=== PATIENT | female | born 1995 | race African-American/Black ===

== ENCOUNTER 2019-07-17 19:40 | Inpatient (IN) ==
[2019-07-17 23:00] LABS: Apearance,Urine CLEAR (Clear); Bilirubin,Urine Negative (Negative); Blood, Urine Large mg/dL (Negative); Glucose,Urine (UA) Negative (Negative); Ketones,Urine 80 mg/dL (Negative); Mucus,Urine Moderate /LPF (Occasional); Nitrite,Urine Negative (Negative); Protein,Urine Negative; RBC,Urine 20 /HPF (0-4); Squamous Epithelial Cell,Urine Occasional /HPF (0-10); Urine Color Yellow (Yellow); Urine Specific Gravity 1.023 (1.001-1.035); WBC,Urine 3 /HPF (0-6)
[2019-07-17] MEDS ORDERED: SODIUM CHLORIDE 0.9% 1,000 ML IV STA (23:00)
[2019-07-17] MEDS ORDERED: METOCLOPRAMIDE 10 MG/2 ML VIAL IV STA (23:01)
[2019-07-18 00:37] LABS: Calcium 8.6 MG/DL (8.5-10.1); Osmolality,Calculated 270.7 MOS/KG (273-304)
[2019-07-18 00:46] LABS: Basophils % 0.3 % (0.0-0.8); Eosinophils # 0.1 10*3/uL (0.0-0.87); Eosinophils % 0.6 % (0.00-10.9); Hematocrit 34.6 VOL% (35.7-47.0); Hemoglobin 10.8 GM/DL (12.0-16.0); Immature Granulocytes % 0.6 %; Immature Granulocytes Absolute 0.06 #; Lymphocytes # 1.9 10*3/uL (1.4-4.0); Lymphocytes % 18.9 % (21.3-54.2); Mean Corpuscular HGB Conc 31.2 GM/DL (32-36); Mean Corpuscular Volume 86.7 FL (87-102); Mean Platelet Volume 9.6 FL (9.6-12.0); Monocytes % 8.2 % (1.7-12.7); Neutrophils % 71.4 % (38.7-73.9); Platelet Count 305 T/CUMM (130-400); Red Blood Count 3.99 MC/CUMM (3.8-5.5); White Blood Count 9.8 T/CUMM (4-12)
[2019-07-18] MEDS ORDERED: DEXTROSE 5% NACL 0.45% 1,000 ML IV SCH ×2 (01:00→02:30)
[2019-07-18] MEDS ORDERED: METOCLOPRAMIDE 10 MG/2 ML VIAL IV STA (01:59)
[2019-07-18] MEDS ORDERED: SCOPOLAMINE 1.5 MG PATCH TRANSDERM ONE ×2 (02:05→02:10)
[2019-07-18] MEDS ORDERED: DEXTROSE 10% 250 ML BAG IV PRN (02:12)
[2019-07-18] MEDS: DEXTROSE 5% NACL 0.45% 1,000 ML IV SCH ×3 (02:21→17:34)
[2019-07-18] MEDS: ONDANSETRON 4 MG/2 ML VIAL IV SCH ×6 (03:45→23:05)
[2019-07-19] MEDS: DEXTROSE 5% NACL 0.45% 1,000 ML IV SCH ×2 (00:03→05:15)
[2019-07-19] MEDS: ONDANSETRON 4 MG/2 ML VIAL IV SCH (02:44)
[2019-07-19 07:20] VITALS: BP 87/50
[2019-07-19] MEDS ORDERED: ONDANSETRON 4 MG/2 ML VIAL IV PRN (07:49)
== END 2019-07-19 13:30 | disposition home or self-care (01) | DRG 833 ==
LOC: N.ED 19:40 → N.EDINP 07-18 02:08 → N.OB 07-18 02:44
PROVIDERS: ADMIT Obstetrics & Gynecology; ATTEND Obstetrics & Gynecology

== ENCOUNTER 2019-07-28 17:48 | Inpatient (IN) ==
[2019-07-28] MEDS ORDERED: SODIUM CHLORIDE 0.9% 1,000 ML IV STA (18:26)
[2019-07-28] MEDS ORDERED: PROMETHAZINE 25 MG/1 ML VIAL IV STA (18:26)
[2019-07-28 19:10] LABS: Basophils % 0.3 % (0.0-0.8); Eosinophils % 0.3 % (0.00-10.9); Hematocrit 35.6 VOL% (35.7-47.0); Hemoglobin 11.6 GM/DL (12.0-16.0); Immature Granulocytes % 0.4 %; Immature Granulocytes Absolute 0.04 #; Lymphocytes # 1.8 10*3/uL (1.4-4.0); Lymphocytes % 18.5 % (21.3-54.2); Mean Corpuscular HGB Conc 32.6 GM/DL (32-36); Mean Corpuscular Volume 83.8 FL (87-102); Mean Platelet Volume 8.9 FL (9.6-12.0); Monocytes % 5.9 % (1.7-12.7); Neutrophils % 74.6 % (38.7-73.9); Platelet Count 399 T/CUMM (130-400); Red Blood Count 4.25 MC/CUMM (3.8-5.5); Red Cell Distribution Width 15.4 % (9.3-17.3)
[2019-07-28 19:25] LABS: Albumin 3.2 G/DL (3.4-5.0); Bilirubin,Total 1.3 MG/DL (0.2-1.0); Calcium 9.4 MG/DL (8.5-10.1); Osmolality,Calculated 273.4 MOS/KG (273-304); Total Protein 8.1 G/DL (6.4-8.3)
[2019-07-28 19:56] LABS: Apearance,Urine Slightly Hazy (Clear); Blood, Urine Large mg/dL (Negative); Glucose,Urine (UA) Negative (Negative); Ketones,Urine 80 mg/dL (Negative); Mucus,Urine Many /LPF (Occasional); Nitrite,Urine Negative (Negative); Protein,Urine 100 MG/DL; RBC,Urine 61 /HPF (0-4); Squamous Epithelial Cell,Urine Occasional /HPF (0-10); Urine Specific Gravity 1.028 (1.001-1.035); WBC,Urine 4 /HPF (0-6)
[2019-07-28 19:57] LABS: Bilirubin,Urine Small mg/dL (Negative); Urine Color Dark yellow (Yellow)
[2019-07-28] MEDS ORDERED: MAGNESIUM HYDROXIDE SUSP 30 ML UDCUP PO PRN (21:14)
[2019-07-28] MEDS ORDERED: PROMETHAZINE 25 MG/1 ML VIAL IM PRN (21:14)
[2019-07-28] MEDS ORDERED: BISACODYL 10 MG SUPP RECTAL PRN (21:14)
[2019-07-28] MEDS ORDERED: ONDANSETRON 4 MG/2 ML VIAL IV PRN (21:14)
[2019-07-28] MEDS ORDERED: ACETAMINOPHEN 325 MG TABLET PO PRN (21:14)
[2019-07-28] MEDS: POTASSIUM CHLORIDE 20 MEQ TABLET PO SCH (22:19)
[2019-07-28] MEDS: DOCUSATE SODIUM 100 MG CAPSULE PO SCH (22:19)
[2019-07-28] MEDS: FAMOTIDINE 20 MG/2 ML VIAL IV SCH (22:19)
[2019-07-28] MEDS: SODIUM CHLORIDE 0.45% 1,000 ML IV SCH (22:20)
[2019-07-29 05:00] LABS: Basophils % 0.2 % (0.0-0.8); Eosinophils # 0.1 10*3/uL (0.0-0.87); Eosinophils % 0.6 % (0.00-10.9); Hematocrit 28.1 VOL% (35.7-47.0); Hemoglobin 9.2 GM/DL (12.0-16.0); Immature Granulocytes % 0.4 %; Immature Granulocytes Absolute 0.03 #; Lymphocytes # 2.9 10*3/uL (1.4-4.0); Lymphocytes % 33.8 % (21.3-54.2); Mean Corpuscular HGB Conc 32.7 GM/DL (32-36); Mean Corpuscular Volume 82.9 FL (87-102); Mean Platelet Volume 9.2 FL (9.6-12.0); Platelet Count 319 T/CUMM (130-400); Red Blood Count 3.39 MC/CUMM (3.8-5.5); Red Cell Distribution Width 15.5 % (9.3-17.3); White Blood Count 8.6 T/CUMM (4-12)
[2019-07-29 05:20] LABS: Albumin 2.4 G/DL (3.4-5.0); Bilirubin,Total 0.9 MG/DL (0.2-1.0); Calcium 8.4 MG/DL (8.5-10.1); Osmolality,Calculated 273.4 MOS/KG (273-304); Total Protein 6.2 G/DL (6.4-8.3)
[2019-07-29] MEDS: SODIUM CHLORIDE 0.45% 1,000 ML IV SCH ×2 (05:41→15:52)
[2019-07-29] MEDS: FAMOTIDINE 20 MG/2 ML VIAL IV SCH ×2 (08:53→21:13)
[2019-07-29] MEDS: DOCUSATE SODIUM 100 MG CAPSULE PO SCH ×2 (11:15→21:21)
[2019-07-29] MEDS: POTASSIUM CHLORIDE 20 MEQ TABLET PO SCH ×2 (11:16→21:21)
[2019-07-29] MEDS: ONDANSETRON 4 MG/2 ML VIAL IV SCH ×3 (11:16→22:47)
[2019-07-29] MEDS ORDERED: IBUPROFEN 800 MG TABLET PO ONE (20:50)
[2019-07-29] MEDS ORDERED: ACETAMINOPHEN 500 MG TABLET PO PRN (20:51)
[2019-07-30] MEDS: SODIUM CHLORIDE 0.45% 1,000 ML IV SCH ×3 (00:22→15:58)
[2019-07-30] MEDS: ONDANSETRON 4 MG/2 ML VIAL IV SCH ×4 (04:18→21:09)
[2019-07-30] MEDS: FAMOTIDINE 20 MG/2 ML VIAL IV SCH ×2 (08:57→21:10)
[2019-07-30] MEDS: POTASSIUM CHLORIDE 20 MEQ TABLET PO SCH ×2 (08:57→21:10)
[2019-07-30] MEDS: DOCUSATE SODIUM 100 MG CAPSULE PO SCH ×2 (08:58→22:07)
[2019-07-31] MEDS: SODIUM CHLORIDE 0.45% 1,000 ML IV SCH ×2 (00:05→09:11)
[2019-07-31] MEDS: ONDANSETRON 4 MG/2 ML VIAL IV SCH ×2 (04:37→10:23)
[2019-07-31 07:40] VITALS: BP 110/61
[2019-07-31] MEDS: POTASSIUM CHLORIDE 20 MEQ TABLET PO SCH (09:02)
[2019-07-31] MEDS: DOCUSATE SODIUM 100 MG CAPSULE PO SCH (09:02)
[2019-07-31] MEDS: FAMOTIDINE 20 MG/2 ML VIAL IV SCH (09:03)
== END 2019-07-31 11:05 | disposition home or self-care (01) | DRG 833 ==
LOC: N.ED 17:48 → N.EDINP 20:23 → N.3E 21:10
PROVIDERS: ADMIT Obstetrics & Gynecology; ATTEND Obstetrics & Gynecology

== ENCOUNTER 2020-01-23 05:59 | Inpatient (IN) ==
[2020-01-23] MEDS ORDERED: OXYTOCIN/LR 20 UNIT/1,000 ML BAG IV SCH (08:00)
[2020-01-23] MEDS: LACTATED RINGERS 1,000 ML IV SCH (08:15)
[2020-01-23] MEDS ORDERED: MEPERIDINE 50 MG/1 ML VIAL IV PRN (08:19)
[2020-01-23] MEDS ORDERED: ONDANSETRON 4 MG/2 ML VIAL IV PRN ×2 (08:19→14:25)
[2020-01-23] MEDS: BUTORPHANOL 2 MG/ML VIAL IV PRN ×2 (08:43→11:27)
[2020-01-23 09:07] LABS: Basophils % 0.3 % (0.0-0.8); Hematocrit 32.1 VOL% (35.7-47.0); Hemoglobin 8.9 GM/DL (12.0-16.0); Immature Granulocytes % 0.5 %; Immature Granulocytes Absolute 0.04 #; Lymphocytes # 0.8 10*3/uL (1.4-4.0); Lymphocytes % 9.7 % (21.3-54.2); Mean Corpuscular HGB Conc 27.7 GM/DL (32-36); Mean Corpuscular Volume 68.6 FL (87-102); Monocytes % 2.5 % (1.7-12.7); Platelet Count 437 T/CUMM (130-400); Red Blood Count 4.68 MC/CUMM (3.8-5.5); Red Cell Distribution Width 17.1 % (9.3-17.3)
[2020-01-23 09:09] LABS: Burr Cells Slight; Hypochromasia 1+; Ovalocytes Slight; Platelet Estimate Adequate
[2020-01-23 09:10] LABS: Microcytosis Slight
[2020-01-23 09:15] LABS: Albumin 2.7 G/DL (3.4-5.0); Bilirubin,Total 0.5 MG/DL (0.2-1.0); Calcium 9.1 MG/DL (8.5-10.1); Total Protein 7.6 G/DL (6.4-8.3); Uric Acid 6.8 MG/DL (2.6-6.0)
[2020-01-23] MEDS ORDERED: miSOPROStoL 200 MCG TABLET ONE (10:55)
[2020-01-23] MEDS ORDERED: OXYTOCIN/LR 20 UNIT/1,000 ML BAG IV ONE ×2 (10:55→14:25)
[2020-01-23] MEDS ORDERED: TRANEXAMIC ACID 1,000 MG/10 ML VIAL ONE (10:55)
[2020-01-23] MEDS ORDERED: METHYLERGONOVINE 0.2 MG/1 ML AMP ONE (10:56)
[2020-01-23] MEDS ORDERED: CARBOPROST TROMETHAMINE 250 MCG/ML AMP IM ONE (10:56)
[2020-01-23 13:18] LABS: Cord Arterial Blood HCO3 20.4 MMOL/L
[2020-01-23 13:20] LABS: Cord Venous Blood HCO3 19.3 MMOL/L; Cord Venous Blood PCO2 36.7 MMHG; Cord Venous Blood PO2 28.4 MMHG
[2020-01-23 14:20] LABS: Apearance,Urine CLEAR (Clear); Bilirubin,Urine Negative (Negative); Blood, Urine Negative (Negative); Glucose,Urine (UA) Negative (Negative); Ketones,Urine 20 mg/dL (Negative); Mucus,Urine Moderate /LPF (Occasional); Nitrite,Urine Negative (Negative); Protein,Urine 100 MG/DL; RBC,Urine 2 /HPF (0-4); Squamous Epithelial Cell,Urine Occasional /HPF (0-10); Urine Color Yellow (Yellow); Urine Specific Gravity 1.015 (1.001-1.035); Urine Urobilinogen < 2.0 EU/DL (0.2-1.0); WBC,Urine 1 /HPF (0-6)
[2020-01-23] MEDS ORDERED: BENZOCAINE 20%/MENTHOL 0.5% SPRAY 56 GM CAN TOP PRN (14:25)
[2020-01-23] MEDS ORDERED: oxyCODONE/ACETAMINOPHEN 5-325 MG TABLET PO PRN ×2 (14:25)
[2020-01-23] MEDS ORDERED: BISACODYL 10 MG SUPP RECTAL PRN (14:25)
[2020-01-23] MEDS ORDERED: MEASLES/MUMPS/RUBELLA VACCINE 0.5 ML VIAL SUBCUT ONE (14:25)
[2020-01-23] MEDS ORDERED: HYDROCORTISONE 2.5% RECTAL CREAM 30 GM TUBE TOP PRN (14:25)
[2020-01-23] MEDS ORDERED: DIPH/TET/ACEL PERT BOOSTER VACCINE 0.5 ML VIAL IM ONE (14:25)
[2020-01-23] MEDS ORDERED: RHO(D) IMMUNE GLOBULIN 300 MCG SYRINGE IM ONE (14:25)
[2020-01-23] MEDS ORDERED: LANOLIN 50% CREAM 0.3 OZ TUBE TOP PRN (14:25)
[2020-01-23] MEDS ORDERED: IBUPROFEN 800 MG TABLET PO PRN (14:25)
[2020-01-23] MEDS ORDERED: WITCH HAZEL PADS 100/JAR TOP PRN (14:25)
[2020-01-23] MEDS ORDERED: ACETAMINOPHEN 500 MG TABLET PO ONE (15:03)
[2020-01-23] MEDS ORDERED: ACETAMINOPHEN 500 MG TABLET ONE (15:05)
[2020-01-23] MEDS ORDERED: ceFAZolin 2,000 MG in PREMIX 1 EACH IV ONE (15:10)
[2020-01-23] MEDS: ACETAMINOPHEN 325 MG TABLET PO PRN (19:02)
[2020-01-23] MEDS ORDERED: MAGNESIUM HYDROXIDE SUSP 30 ML UDCUP PO PRN (20:31)
[2020-01-23] MEDS ORDERED: SIMETHICONE CHEW 80 MG TABLET PO SCH (20:35)
[2020-01-23] MEDS ORDERED: SIMETHICONE CHEW 80 MG TABLET PO PRN (20:35)
[2020-01-23] MEDS: DOCUSATE SODIUM 100 MG CAPSULE PO SCH (20:43)
[2020-01-24] MEDS: SODIUM CHLOR 0.9% KCL 20 MEQ 20 MEQ/1,000 ML BAG IV SCH ×4 (01:00→10:37)
[2020-01-24 05:41] LABS: Basophils % 0.1 % (0.0-0.8); Immature Granulocytes % 0.8 %; Immature Granulocytes Absolute 0.11 #; Lymphocytes # 3.5 10*3/uL (1.4-4.0); Lymphocytes % 24.8 % (21.3-54.2); Mean Corpuscular Volume 68.7 FL (87-102); Mean Platelet Volume 9.1 FL (9.6-12.0); Monocytes % 7.9 % (1.7-12.7); NRBC # 0.02 10*3/uL; Neutrophils % 66.4 % (38.7-73.9); Platelet Count 393 T/CUMM (130-400); Red Blood Count 3.64 MC/CUMM (3.8-5.5); Red Cell Distribution Width 16.8 % (9.3-17.3); White Blood Count 14.2 T/CUMM (4-12)
[2020-01-24 06:13] LABS: Hypochromasia 2+; Microcytosis 1+; Ovalocytes Few; Polychromasia Slight
[2020-01-24 06:14] LABS: Platelet Estimate Normal
[2020-01-24] MEDS: LACTATED RINGERS 1,000 ML IV SCH (06:51)
[2020-01-24] MEDS ORDERED: SODIUM CHLORIDE 0.9% 1,000 ML IV PRN (07:15)
[2020-01-24] MEDS: DOCUSATE SODIUM 100 MG CAPSULE PO SCH ×3 (08:13→21:54)
[2020-01-24] MEDS: ACETAMINOPHEN 325 MG TABLET PO PRN ×2 (08:14→22:23)
[2020-01-24 21:19] LABS: Hematocrit 29.4 VOL% (35.7-47.0)
[2020-01-24 21:21] LABS: Hemoglobin 8.5 GM/DL (12.0-16.0)
[2020-01-25] MEDS: SODIUM CHLOR 0.9% KCL 20 MEQ 20 MEQ/1,000 ML BAG IV SCH ×2 (01:25→10:09)
[2020-01-25] MEDS: ACETAMINOPHEN 325 MG TABLET PO PRN ×2 (05:04→11:55)
[2020-01-25] MEDS: DOCUSATE SODIUM 100 MG CAPSULE PO SCH ×2 (05:04→09:14)
[2020-01-25 12:10] VITALS: BP 130/72
== END 2020-01-25 12:36 | disposition home or self-care (01) | DRG 805 ==
LOC: N.LDOUT 05:59 → N.LD 06:00 → N.2E 16:39
PROVIDERS: ADMIT Obstetrics & Gynecology; ATTEND Obstetrics & Gynecology